=== PATIENT | female | born 1940 | race Caucasian/White ===

== ENCOUNTER 2016-09-10 08:24 | Emergency (ER) | payer MEDICARE, SELFPAY ==
[2016-09-10 08:45] VITALS: BMI 20.9
[2016-09-10] MEDS ORDERED: PREDNISONE 20 MG TAB PO ONE (09:36)
[2016-09-10] MEDS ORDERED: Albuterol/Ipratropium Neb 3 ML NEB NEB ONE (09:36)
[2016-09-10] MEDS ORDERED: AZITHROMYCIN 250 MG TAB PO ONE (09:37)
[2016-09-10] MEDS ORDERED: TUSSIONEX 5 ML ORAL SYRINGE PO ONE (09:39)
--- NOTE | 2016-09-10 09:39 | EDPRACDOC ---
- General Information Chief Complaint: Flu-Like Symptoms Stated Complaint: COUGH Time Seen by Provider: 09/10/16 09:33 Mode Of Arrival: Car Home Medications: Home Medications Acetaminophen/Dp-Hydram HCl [Tylenol Pm Ex-Strength Caplet 500mg/25mg] 2 tabs PO HS PRN 07/17/13 Calcium Carbonate/Vitamin D3 [Calcium + Vit D Caplet (600mg/400IU)] 1 tab PO BID 07/17/13 Omeprazole [Prilosec] 20 mg PO DAILY 07/17/13 Raloxifene [Evista] 60 mg PO DAILY 07/17/13 Tiotropium [place] [Spiriva] 1 puff INH DAILY 07/17/13 Atenolol-Chlorthalidone [Tenoretic 50 Tablet (50mg/25mg)] 1 tab PO DAILY POTASSIUM CHLORIDE Tablet [K-DUR 20 mEq Tablet*] 10 meq PO BID 12/11/13 Levothyroxine Sodium [Synthroid] 88 mcg PO DAILY 12/23/13 Celecoxib (anti-inflammatory) [Celebrex] 200 mg PO DAILY 12/29/13 Cholecalciferol (Vitamin D3) [Vitamin D3] 400 unit PO BID 12/29/13 Aspirin [Aspirin EC] 81 mg PO HS 03/14/14 Simvastatin [Zocor] 80 mg PO HS 03/14/14 PEG-Electrolytes (Miralax) [Miralax] 17 gm PO BID 12/18/15 Albuterol Sulfate [Proair Hfa] 2 puff INH Q4-6H PRN 01/13/16 Mometasone Furoate [Nasonex] 2 spray VALERIA DAILY PRN 01/13/16 Ondansetron [Zofran Odt] 4 mg PO Q6H PRN 02/03/16 Clopidogrel Bisulfate [Plavix] 75 mg PO DAILY 03/04/16 Azithromycin [Zithromax] 250 mg PO DAILY #5 tablet 09/10/16 Diazepam [Valium] 2 mg PO BID #20 tablet 09/10/16 Hydrocodone Bit/Homatrop Me-Br [Hydrocodone Compound Syrup] 1 tsp PO Q12H Levofloxacin [Levaquin] 750 mg PO .DAILY X 10D 09/10/16 Niacin [Niaspan] 1,000 mg PO QHS 09/10/16 Prednisone [Deltasone, Orasone] 10 mg PO DIR 09/10/16 Varenicline Tartrate [Chantix] 1 mg PO DAILY 09/10/16 Allergies/Adverse Reactions: Allergies Allergy/AdvReac Type Severity Reaction Status Date / Time No Known Allergies Allergy Verified 09/10/16 08:42 - History of Present Illness HPI: PATIENT HAS A HX OF COPD. COUGH PRODUCTIVE OF WHITE SPUTUM FOR 1 WEEK. NO FEVER TAKING LEVAQUIN, HYDROCODONE, AND PREDNISONE FOR 4 DAYS WITHOUT RELIEF. Shortness of Breath: Mild Relevant History: Reports: COPD Cough: Reports: Productive, White Rhinorrhea: Reports: None Ear Symptoms: Reports: None SOB Worsens with: Reports: Exertion SOB Improves with: Reports: Inhaler Associated Signs and symptoms: Reports: Cough, Myalgia ED Past Medical History - History Reviewed Yes Nurses notes reviewed and agree except as marked Travel Outside of [place] in the Last 3 Months?: No - Patient Medical History Neurological History: Reports: Dementia (mild) Cardiac History: Reports: Hypertension, Hypercholesterolemia Respiratory History: Reports: COPD, Cough GI/ History: Reports: Gastroesophageal Reflux, Ulcer (PEPTIC ULCER DISEASE) Musculoskeletal History: Reports: Arthritis Psychological History: Reports: Depression (SINCE DIAGNOSED), Anxiety. Denies: Substance Use Disorder Systemic History: Reports: Cancer (LUNG/ BREAST 22 YEARS AGO), Anemia (HX), Hypothyroidism Surgical History: Reports: Angioplasty (r arm and b/l legs), Tonsillectomy/ Adnoidectomy, Other (LUMPECTOMY ON RIGHT WITH LN DISSECTION, SHOULDER SX) Date of Last Radiation Treatment: 1993 Date of Last Chemotherapy Date: 2013 - Family Medical History Reports: Hypertension (DAD,BROTHER), Cancer (SISTER), Stroke (MOM), Cardiac Disorders (DAD,BROTHER). Denies: Diabetes - Social Medical History Smoking Status: Heavy tobacco smoker (5 or more cigarettes/day or daily pipe/ cigar) Social History: Denies: Substance Use Disorder ETOH: None Substance Abuse: None Lives With: Family Lives In: Home EDM Review of Systems - Review of Systems ROS Negative Except as Marked: Yes All systems reviewed and were negative except as marked Constitutional: No Symptoms Reported. negative: Fever, Chills, Weakness, Fatigue, Loss of Appetite Eyes: No Symptoms Reported. negative: Redness, Blurred Vision, Double Vision, Discharge, Pain, Light Sensitive, Photophobia Ears: No Symptoms Reported. negative: Pain, Hearing Loss, Drainage, Ear Pulling Throat: No Symptoms Reported. negative: Pain, Swelling Nose: No Symptoms Reported. negative: Congestion, Bleeding, Discharge, Injection, Swelling, Deformity, Ecchymosis, Tender, Abrasion, Laceration Mouth: No Symptoms Reported. negative: Pain, Drooling Respiratory: Cough, Shortness of Breath, Wheezing. negative: Barky Cough, Brassy Cough, Hemoptysis Cardiovascular: No Symptoms Reported. negative: Chest Pain, Palpitations, Syncope, Edema, Orthopnea, PND, Skin Mottling, Cyanosis Gastrointestinal: No Symptoms Reported. negative: Pain, Constipation, Nausea, Vomiting, Diarrhea, Melena, Formula Intolerance Genitourinary: No Symptoms Reported. negative: Dysuria, Hematuria, Frequency, Discharge, Bleeding, Testicular Pain, Neurological: No Symptoms Reported. negative: Headache, Dizziness, Seizure, Numbness, Weakness, Speech Difficulty, Gait Difficulty Musculoskeletal: No Symptoms Reported. negative: Neck, Chestwall, Ribs, Back, Shoulder, Arm, Elbow, Forearm, Wrist, Hand, Pelvis, Hip, Femur, Knee, Leg, Ankle , Foot Integumentary: No Symptoms Reported. negative: Itching, Rash, Bruising, Wound Allergic/Immunologic: No Symptoms Reported. negative: Hives, Itching Hematologic: No Symptoms Reported. negative: Lymphadenopathy, Easy Bruising, Easy Bleeding Endocrine: No Symptoms Reported. negative: Weight Gain, Weight Loss Psychiatric: No Symptoms Reported. negative: Anxiety, Depression, Hallucinations, Insomnia, Suicidal - Physical Exam Constitutional: No apparent distress, Alert (Awake) Oriented to: Time, Person, Place Last recorded Vital Signs: Last Vital Signs Temp 98.4 F 09/10/16 08:42 Pulse 68 09/10/16 08:45 Resp 18 09/10/16 08:45 BP 127/62 09/10/16 08:45 Pulse Ox 100 09/10/16 08:45 Oxygen Pulse Oxygen Saturation 100 O2 Device Room Air Oxygen Flow Rate Fraction of Inspired Oxygen ( FIO2) - HEENT Head: Normal ( normocephalic) Eye Exam: Normal (PERRL, EOMI, Sclera white) Oropharynx: Normal (Pharynx:Moist without exudate,Gums-no swelling) Tympanic Membrane: Normal ENT EAC: Normal TMJ: Normal Nose: No Symptoms Reported (septum midline) Neck: Normal (FROM, trachea at midline) - Respiratory/Cardiovascular Respiratory: Diminished, Wheezes Cardiovascular: Normal (RRR without murmur, gallop or rub) - GI Auscultation: Normal (NABS) Palpation: Normal (Soft,No rebound or guarding, non distended) Tenderness: Non tender Ruiz's Sign: Negative - Musculoskeletal Back: Normal (Non-Tender) Extremities: Normal (Normal tone, Pulses 2+ No cyanosis or edema, FROM) - Integumentary Skin: Normal, Warm, Dry Lymphatics: Normal (no adenopathy) - Neurologic Memory Impaired: Normal Motor Function: Normal (Normal tone, Pulses 2+ No cyanosis or edema, FROM) Cranial Nerve: Normal (CN II-X11 intact sensation, strength 5/5) Cerebellar: Normal Mood Description: Normal Perception: Normal Decision Time to Discharge: 10:33 - Departure Yes I personally saw and evaluated the patient. Disposition: Home Condition: Good Final Diagnosis: URI (upper respiratory infection) Qualifiers: URI type: unspecified URI Qualified Code(s): J06.9 - Acute upper respiratory infection, unspecified COPD (chronic obstructive pulmonary disease) Qualifiers: COPD type: emphysema Emphysema type: other Qualified Code(s): J43.8 - Other emphysema Instructions: Upper Respiratory Infection (ED) Education/Counseling Given To: Patient, Family Member Education/Counseling Given Regarding: Diagnosis, Treatment, Prognosis, Follow Up Referrals: Samantha Colon, INTERVENTIONAL TECHNOLOGIST [Primary Care Provider] - One Week Prescriptions: Azithromycin [Zithromax] 250 mg PO DAILY #5 tablet Diazepam [Valium] 2 mg PO BID #20 tablet Additional Instructions: CONTINUE PREDNISONE
[2016-09-10 09:52] LABS: ALLEN'S TEST PASS; BEb 1.9 (+/- 2); TCO2 27.9 MMOL/L (23-27)
[2016-09-10 09:53] LABS: ABG Draw Site LRA
--- NOTE | 2016-09-10 10:32 | DIRPT ---
CLINICAL DATA: Cough for 1 week EXAM: CHEST 2 VIEW COMPARISON: Chest radiograph February 03, [address] May 07, 2016 FINDINGS: There is postoperative change on the right with right middle lobe region scarring. There is no edema or consolidation. Heart size and pulmonary vascularity are normal. No adenopathy. Port-A-Cath tip is in the superior vena cava. There is atherosclerotic calcification in the aorta. No adenopathy. IMPRESSION: Postoperative change with scarring on the right. No edema or consolidation. No change in cardiac silhouette. Electronically Signed By: David Verde III, M.D. On: 09/10/2016 10:29
[2016-09-10 10:40] VITALS: BP 133/73; PULSE 71; TEMP 98.7
== END 2016-09-10 10:38 | disposition home or self-care (01) ==
LOC: ED 08:24
DX: J06.9 Acute upper respiratory infection, unspecified (principal); J44.9 Chronic obstructive pulmonary disease, unspecified; I10 Essential (primary) hypertension; F17.210 Nicotine dependence, cigarettes, uncomplicated; Z79.82 Long term (current) use of aspirin; Z79.899 Other long term (current) drug therapy
CPT/HCPCS: 36600; 71020; 82803; 87804; 94640; 99283; A9270; J7620; J3490